=== PATIENT | male | born 1985 | race Two or more races ===

== ENCOUNTER 2018-01-20 16:12 | Emergency (ER) | payer SELFPAY ==
[~2018-01-20] VITALS: Ht 177.8 cm; Wt 70.3 kg
[2018-01-20 16:21] VITALS: BP 109/64
[2018-01-20] MEDS ORDERED: NKM (16:25)
[2018-01-20] MEDS ORDERED: ROBAXIN-750750 MG PO (17:35)
[2018-01-20] MEDS ORDERED: IBUPROFEN600 MG ORAL (17:35)
[2018-01-20] MEDS ORDERED: LIDODERM700 M1 TOPIC (17:35)
[2018-01-20 17:36] VITALS: BP 112/65
--- NOTE | 2018-01-20 18:38 | Emergency Room Report ---
History of Present Illness General Chief Complaint: Back Pain-No Injury Source: Patient Present Illness HPI 32-year-old male presents ED for evaluation. Patient complaining of back pain times one week. Denies any recent injury. States he does weight lift and does see a chiropractor on a regular basis. States that after his last chiropractor adjustment he felt increased pain in his lower back. Pain is throbbing, 8 out of 10, nonradiating. Denies any incontinence. Denies any leg or motor weakness. No other aggravating relieving factors. Denies any other associated symptoms Allergies: Coded Allergies: No Known Allergies (Unverified , 01/20/18) Patient History Past Medical History: none Past Surgical History: none Pertinent Family History: none Social History: Denies: smoking, alcohol use, drug use Immunizations: UTD Reviewed Nursing Documentation: PMH: Agreed; PSxH: Agreed Nursing Documentation-PMH Past Medical History: No Stated History Review of Systems All Other Systems: negative except mentioned in HPI Physical Exam Vital Signs Date Time Temp Pulse Resp B/P (MAP) Pulse Ox O2 Delivery O2 Flow Rate FiO2 01/20/18 16:21 98.1 67 14 109/64 98 Room Air Sp02 EP Interpretation: reviewed, normal General Appearance: no apparent distress, alert, GCS 15, non-toxic Head: normocephalic Eyes: bilateral eye normal inspection, bilateral eye PERRL ENT: normal ENT inspection Neck: normal inspection Respiratory: normal inspection Cardiovascular #1: normal inspection Gastrointestinal: normal inspection Rectal: deferred Genitourinary: no CVA tenderness, no vertebral tenderness Musculoskeletal: tender - paraspinal lumbar tenderness Neurologic: alert, oriented x3, responsive, motor strength/tone normal, sensory intact, speech normal Psychiatric: normal inspection Skin: normal inspection Lymphatic: normal inspection Medical Decision Making Diagnostic Impression: Primary Impression: Back pain Qualified Codes: M54.5 - Low back pain ER Course Hospital Course 32-year-old male presents ED complaining of lower back pain. Worsened after visiting chiropractor Differential diagnoses include: pyelonephritis, kidney stone, muscle strain, Lspine fracture Clinical course Patient placed on stretcher. After initial history, physical exam reveals male in no acute distress. Is no vertebral body tenderness or step-off. There is some paraspinal lumbar tenderness. Negative straight leg raise. 5 out of 5 motor strength in lower extremities. Sensation is intact. I discussed findings with patient. Patient states he does not have a PMD at this time. I will provide him with PMD referrals. Patient would benefit from physical therapy. I offered to provide pain medications here but patient declined stating that he does not have insurance. He will agree to prescriptions and PMD referrals Diagnosis - back pain Stable and discharged to home with prescription for motrin, robaxin, lidoderm patch. Followup with PMD. Return to ED if symptoms recur or worsen Last Vital Signs Date Time Temp Pulse Resp B/P (MAP) Pulse Ox O2 Delivery O2 Flow Rate FiO2 01/20/18 17:36 98.0 78 15 112/65 100 Room Air Status: improved Disposition: HOME, SELF-CARE Condition: Stable Scripts Lidocaine (Lidoderm) 1 Each Adh..patch 1 PATCH TOPIC DAILY, #7 PATCH 0 Refills Patch(es) may remain in place for up to 12 hours in any 24-hour period. Prov: Dakota Abraham MD 01/20/18 Methocarbamol* (ROBAXIN-750*) 750 Mg Tablet 750 MG PO TID, #21 TAB 0 Refills Prov: Dakota Abraham MD 01/20/18 Ibuprofen* (MOTRIN*) 600 Mg Tablet 600 MG ORAL Q8H PRN for For Pain, #30 TAB 0 Refills Prov: Dakota Abraham MD 01/20/18 Referrals: NOT CHOSEN IPA/,REFERRING (PCP) [facility] Marisol Salazar [facility]. [facility] Patient Instructions: Low Back Strain With Rehab[facility] Dakota Abraham MD Jan 20, 2018 18:38
== END 2018-01-20 18:12 | disposition home or self-care (01) ==
LOC: EMR 17:30
DX: M54.5 Low back pain (principal)
CPT/HCPCS: 99283